=== PATIENT | female | born 1965 | race Two or more races ===

== ENCOUNTER 2017-10-12 19:09 | Emergency (ER) | payer MEDICAID ==
[~2017-10-12] VITALS: Ht 160 cm; Wt 75.7 kg
[2017-10-12 20:30] VITALS: BP 197/98
== END 2017-10-13 | disposition left against medical advice (07) ==
LOC: ER 19:09
DX: R05 Cough (principal); Z53.21 Procedure and treatment not carried out due to patient leaving prior to being seen by health care provider